=== PATIENT | female | born 1935 | race Two or more races ===

== ENCOUNTER 2017-09-15 18:45 | Inpatient (IN) | payer OTHER ==
[~2017-09-15] VITALS: Ht 152.4 cm; Wt 37.3 kg
[2017-09-15 19:31] LABS: HEMATOCRIT 38.4 % (36.0-46.0); HEMOGLOBIN 12.6 G/DL (11.9-15.5); MCH 31.1 PG (29.0-34.0); MCHC 32.8 G/DL (30.0-36.0); MCV 94.8 FL (83-99); RBC DIS.WIDTH-CV 11.4 % (11.8-14.6); RBC DIS.WIDTH-SD 39.9 % (39-53); RED BLOOD COUNT 4.05 M/uL (3.80-5.20)
[2017-09-15 19:35] LABS: APPEARANCE CLEAR ((CLEAR)); BILIRUBIN NEGATIVE; BLOOD NEGATIVE; COLOR YELLOW ((YELLOW)); GLUCOSE (STRIP) NEGATIVE; KETONES 20; LEUKOCYTES NEGATIVE; NITRITE NEGATIVE; PROTEIN (STRIP) NEGATIVE; SPECIFIC GRAVITY 1.013 (1.000-1.030); UCUL ADDED? NO
[2017-09-15 19:48] LABS: CHLORIDE 81 mEq/L (99-109); POTASSIUM 4.5 mEq/L (3.7-5.4); SODIUM 133 mEq/L (136-147)
[2017-09-15 19:49] LABS: GLUCOSE 104 mg/dL (70-99)
[2017-09-15 19:54] LABS: CREATININE 0.5 mg/dL (0.6-1.3); GFR ESTIMATE (CALCULATED) > 59 mL/min/; UREA NITROGEN (BUN) 11 mg/dL (9-23)
[2017-09-15 19:55] LABS: CARBON DIOXIDE (BICARBONATE) > 40.0 mEq/L (20-31)
[2017-09-15 20:09] LABS: HEMATOLOGY COMMENT 1 SN; PLAT.SUFFICIENCY ADEQUATE; PLATELET COUNT UNABLE TO REPORT K/uL (156-360)
[2017-09-15 20:43] LABS: COMMENTS - BLOOD GASES A+C+; DEVICE NC; O2 FLOW 5 L/MIN; PCO2 99 mm Hg (35-45); PO2 153 mm Hg (80-100); SITE LR; pH 7.31 (7.35-7.45)
[2017-09-15 20:44] LABS: BASE EXCESS 18.6 mEq/L (-3 to +3); BICARBONATE 49.8 mEq/L (22-26); METHEMOGLOBIN 1.2 % (0-1.5)
[2017-09-15 23:13] LABS: ALBUMIN 4.1 g/dL (3.2-4.8)
[2017-09-15 23:18] LABS: TOTAL BILIRUBIN 0.4 mg/dL (0.0-1.0)
[2017-09-15 23:19] LABS: ALKALINE PHOSPHATASE 62 IU/L (3-129)
[2017-09-15 23:21] LABS: AST (GOT) 17 IU/L (2-34); DIRECT BILIRUBIN 0.2 mg/dL (0.0-0.3)
[2017-09-15 23:22] LABS: ALT (GPT) 20 IU/L (3-49)
[2017-09-16 01:56] VITALS: BP 186/100
[2017-09-16 05:26] LABS: HEMATOCRIT 32.4 % (36.0-46.0); MCH 30.2 PG (29.0-34.0); MCHC 31.8 G/DL (30.0-36.0); PLATELET COUNT 236 K/uL (156-360); RBC DIS.WIDTH-CV 11.5 % (11.8-14.6); RBC DIS.WIDTH-SD 40.3 % (39-53); RED BLOOD COUNT 3.41 M/uL (3.80-5.20)
[2017-09-16 05:27] LABS: HEMOGLOBIN 10.3 G/DL (11.9-15.5)
[2017-09-16 05:50] LABS: CHLORIDE 85 MEQ/L (99-109); CREATININE 0.3 MG/DL (0.6-1.3); GFR ESTIMATE (CALCULATED) > 59 mL/min/; POTASSIUM 3.9 MEQ/L (3.7-5.4); SODIUM 133 MEQ/L (136-147); UREA NITROGEN (BUN) 11 mg/dL (9-23)
[2017-09-16 05:59] LABS: GLUCOSE 225 mg/dL (70-99)
[2017-09-16 07:53] VITALS: BP 148/73
[2017-09-16] MEDS ORDERED: ATROVENT H200 INHALA IH (11:47)
[2017-09-16] MEDS ORDERED: ADVAIR 250/501 DISK IH (11:49)
[2017-09-16] MEDS ORDERED: LEVOTHYROXINE100 MCG PO (11:51)
[2017-09-16 12:00] VITALS: BP 159/72
[2017-09-16] MEDS ORDERED: XANAX0.25 MG PO (12:00)
[2017-09-16] MEDS ORDERED: RANITIDINE HCL150 MG PO (12:01)
[2017-09-16] MEDS ORDERED: ONDANSETRON HCL4 MG PO (12:01)
[2017-09-16] MEDS ORDERED: RELAFEN500 M1 PO (12:04)
[2017-09-16] MEDS ORDERED: TYLENOL REGULA325 MG PO (12:05)
[2017-09-16 16:00] VITALS: BP 141/67
[2017-09-16 19:57] VITALS: BP 165/94
[2017-09-17 00:12] VITALS: BP 157/81
[2017-09-17 04:00] VITALS: BP 138/77
[2017-09-17 08:35] VITALS: BP 172/82
[2017-09-17 15:36] VITALS: BP 143/78
[2017-09-18 07:04] VITALS: BP 140/80
[2017-09-18 15:35] VITALS: BP 151/76
[2017-09-18] MEDS ORDERED: VENTOLIN HFA18 GM IH (15:55)
[2017-09-19 07:10] VITALS: BP 132/84
[2017-09-19] MEDS ORDERED: XANAX0.25 MG PO (12:32)
[2017-09-19] MEDS ORDERED: PREDNISONE20 MG PO (12:32)
== END 2017-09-19 16:18 | DRG 190 ==
LOC: EME 18:45 → 5SOUTH 23:47 → EDOF 23:47 → ENRESERV 23:47 → 5SOUTH 09-16 01:21
PROVIDERS: Emergency Medicine; Hospitalist
DX: J44.1 Chronic obstructive pulmonary disease with (acute) exacerbation (principal); J96.21 Acute and chronic respiratory failure with hypoxia; J96.22 Acute and chronic respiratory failure with hypercapnia; E87.4 Mixed disorder of acid-base balance; R41.82 Altered mental status, unspecified; J96.12 Chronic respiratory failure with hypercapnia; E87.1 Hypo-osmolality and hyponatremia; F03.91 Unspecified dementia, unspecified severity, with behavioral disturbance; F41.9 Anxiety disorder, unspecified; Z66 Do not resuscitate; Z51.5 Encounter for palliative care; R91.1 Solitary pulmonary nodule; R63.4 Abnormal weight loss; Z68.1 Body mass index [BMI] 19.9 or less, adult; Z85.43 Personal history of malignant neoplasm of ovary; Z87.891 Personal history of nicotine dependence; Z90.710 Acquired absence of both cervix and uterus; Z99.81 Dependence on supplemental oxygen
CPT/HCPCS: 36600; 70450; 71045; 80048; 80076; 81003; 82607; 82803; 82948; 83605; 84075; 84443; 85027; 87040; 93005; 94640; 94640 76; 94760; 94799; 99202; 99281; 99285; A6214; J0360; J1630; J1644; J1815; J2270; J2920; J2930; J7030